=== PATIENT | male | born 1945 | race Caucasian/White ===

== ENCOUNTER → 2016-04-28 | Outpatient (CLI) | payer OTHER ==
[~2016-04-28] MED LIST: CLON0.1T PO; LISI-360 PO; LUMBAR BACK BRA1 MIS; TOPR200T PO; [UNRECOGNIZED DRUG - CODE] EX; [UNRECOGNIZED DRUG - CODE] PO
== END ==
LOC: HORT 10:12
PROVIDERS: ATTEND Physician Assistant Medical
DX: S32.000A Wedge compression fracture of unspecified lumbar vertebra, initial encounter for closed fracture (principal); X58.XXXA Exposure to other specified factors, initial encounter
CPT/HCPCS: L0627

== ENCOUNTER 2016-05-06 10:03 | Emergency (ER) | payer OTHER ==
[~2016-05-06] VITALS: Ht 170.2 cm; Wt 75.0 kg
[~2016-05-06 10:03] MED LIST changes: -CLON0.1T PO
[2016-05-06 10:10] VITALS: BP 161/90; PULSE 65; RESP 16; TEMP 97.9; O2SAT 98
--- NOTE | 2016-05-06 10:27 | PD ---
HPI Chief Complaint: confusion Time Seen by Provider: 10:11 Travel History International Travel<30 days: No Contact w/Intl Traveler<30days: No Traveled to known affect area: No History of Present Illness HPI This patient is brought in by his after he had a spell of confusion this morning. He was heading to the gym which she is going to many times and got confused and went in the wrong door. The patient realized that he was confused. Last night he reports that he had a blood pressure spike up to 200 systolic and had a headache. He had one other episode a week ago where he developed headache and blood pressure spike and confusion but it resolved spontaneously and he did not get it checked out. The patient did not have any muscle weakness or sensory loss or speech slurring. He takes no blood thinners. No history of CVA or TIA. He takes no sedating or mind altering medication. He had an L1 compression fracture diagnosed 3 weeks ago but he takes only Tylenol as needed for pain. Severity was moderate but has resolved and at this point he feels well. His agrees that his mental status is normal at this time. Duration was 30 minutes PFSH Past Medical History Arthritis: Yes Asthma: No Autoimmune Disease: No Heart Rhythm Problems: No Cancer: Yes (PROSTATE RADATION THERAPY AND CRYOSURGERY) Cardiovascular Problems: No High Cholesterol: Yes Chest Pain: No COPD: No Cerebrovascular Accident: No Diabetes: No Endocrine: No GERD: No Genitourinary: No Hepatitis: No Hiatal Hernia: No Hypertension: Yes Immune Disorder: No Kidney Stones: No Musculoskeletal: Yes (BACK AND NECKPAIN ARTHRITIS) Neurologic: Yes (NUMBNESS BOTH FEET, BACK, AND BUTTOCKS PAIN) Psychiatric: No Respiratory: No Migraines: No Radiation Therapy: Yes Seizures: No Sleep Apnea: No Thyroid Disease: No Ulcer: No Past Surgical History Abdominal Surgery: No AICD: No Cardiac Surgery: No Ear Surgery: No Endocrine Surgery: No Eye Surgery: Yes (CATARACT SX RIGHT EYE) Genitourinary Surgery: Yes (CRYOSURGERY, PROSTATE) Gynecologic Surgery: No Joint Replacement: No Neurologic Surgery: Yes (LUMBAR DECOMPRESSIVE LAMINOTOMY, 2-5) Oral Surgery: No Pacemaker: No Thoracic Surgery: No Other Surgery: Yes Social History Alcohol Use: No Tobacco Use: No Substance Use: No Allergies-Medications (Allergen,Severity, Reaction): Coded Allergies: Shellfish (Unverified Allergy, Mild, FLUSHED FACE, 1/14/17) Reported Meds & Prescriptions Reported Meds & Active Scripts Active Lumbar Back Brace/Support 1 Mis Mis 1 Ea .ROUTE DIRECTED Diflorasone Diacetate 0.05 % Cre 0.05 % EX BID Reported Casodex (Bicalutamide) 50 Mg Tab 50 Mg PO DAILY Lisinopril 10 mg (Lisinopril) 10 Mg Tab 10 Mg PO DAILY Toprol XL (Metoprolol Succinate) 200 Mg Tab 100 Mg PO DAILY Review of Systems General / Constitutional: No: Fever Eyes: No: Visual changes HENT: Positive: Headaches Cardiovascular: No: Chest Pain or Discomfort Respiratory: No: Shortness of Breath Gastrointestinal: No: Abdominal Pain Genitourinary: No: Dysuria Musculoskeletal: No: Pain Skin: No Rash Neurologic: Positive: Headache, Change in Mentation, No: Weakness Psychiatric: No: Depression Endocrine: No: Polydipsia Hematologic/Lymphatic: No: Easy Bruising Physical Exam Narrative GENERAL: Well-nourished, well-developed patient in no apparent distress. SKIN: Warm and dry. HEAD: Atraumatic. Normocephalic. EYES: Pupils equal and round. No scleral icterus. No injection or drainage. ENT: No nasal bleeding or discharge. Mucous membranes pink and moist. NECK: Trachea midline. No JVD. No meningeal signs CARDIOVASCULAR: Regular rate and rhythm. No murmur appreciated. RESPIRATORY: No accessory muscle use. Clear to auscultation. Breath sounds equal bilaterally. GASTROINTESTINAL: Abdomen soft, non-tender, nondistended. Hepatic and splenic margins not palpable. MUSCULOSKELETAL: No obvious deformities. No clubbing. No cyanosis. No edema. NEUROLOGICAL: Awake and alert. No obvious cranial nerve deficits. Motor grossly within normal limits. Normal speech. PSYCHIATRIC: Appropriate mood and affect; insight and judgment normal. Data Data Last Documented VS Vital Signs Date Time Temp Pulse Resp B/P Pulse Ox O2 Delivery O2 Flow Rate FiO2 05/06/16 11:03 60 16 163/82 98 05/06/16 10:10 97.9 Orders Basic Metabolic Panel (Bmp) (05/06/16 10:20) Complete Blood Count With Diff (05/06/16 10:20) Prothrombin Time / Inr (Pt) (05/06/16 10:20) Act Partial Throm Time (Ptt) (05/06/16 10:20) Thyroid Stimulating Hormone (05/06/16 10:20) Urinalysis - C+S If Indicated (05/06/16 10:20) Ct Brain W/O Iv Contrast(Rout) (05/06/16 10:20) Ecg Monitoring (05/06/16 10:20) Iv Access Insert/Monitor (05/06/16 10:20) Oximetry (05/06/16 10:20) Sodium Chloride 0.9% Flush (Ns Flush) (05/06/16 10:30) Labs Laboratory Tests Test 05/06/16 05/06/16 10:30 10:40 White Blood Count 7.9 TH/MM3 Red Blood Count 4.03 MIL/MM3 Hemoglobin 12.3 GM/DL Hematocrit 36.3 % Mean Corpuscular Volume 90.2 FL Mean Corpuscular Hemoglobin 30.4 PG Mean Corpuscular Hemoglobin 33.7 % Concent Red Cell Distribution Width 12.2 % Platelet Count 193 TH/MM3 Mean Platelet Volume 8.6 FL Neutrophils (%) (Auto) 75.6 % Lymphocytes (%) (Auto) 12.7 % Monocytes (%) (Auto) 9.3 % Eosinophils (%) (Auto) 2.2 % Basophils (%) (Auto) 0.2 % Neutrophils # (Auto) 6.0 TH/MM3 Lymphocytes # (Auto) 1.0 TH/MM3 Monocytes # (Auto) 0.7 TH/MM3 Eosinophils # (Auto) 0.2 TH/MM3 Basophils # (Auto) 0.0 TH/MM3 CBC Comment DIFF FINAL Differential Comment Prothrombin Time 10.4 SEC Prothromb Time International 0.9 RATIO Ratio Activated Partial 25.1 SEC Thromboplast Time Sodium Level 137 MEQ/L Potassium Level 4.1 MEQ/L Chloride Level 102 MEQ/L Carbon Dioxide Level 24.9 MEQ/L Anion Gap 10 MEQ/L Blood Urea Nitrogen 13 MG/DL Creatinine 0.92 MG/DL Estimat Glomerular Filtration 81 ML/MIN Rate Random Glucose 116 MG/DL Calcium Level 9.3 MG/DL Thyroid Stimulating Hormone 1.010 uIU/ML 3rd Gen Urine Collection Type CATH Urine Color YELLOW Urine Turbidity CLEAR Urine pH 6.5 Urine Specific [place] 1.020 Urine Protein NEG mg/dL Urine Glucose (UA) NEG mg/dL Urine Ketones NEG mg/dL Urine Occult Blood NEG Urine Nitrite NEG Urine Bilirubin NEG Urine Leukocyte Esterase NEG Urine RBC 0-3 /hpf Urine Squamous Epithelial 0-5 /hpf Cells Urine Amorphous Sediment FEW Microscopic Urinalysis Comment CATH-CULT NOT IND Urine Collection Time 1040 MDM Medical Decision Making Medical Screen Exam Complete: Yes Emergency Medical Condition: Yes Medical Record Reviewed: Yes Differential Diagnosis Hypertensive urgency, intracranial hemorrhage, TIA, migraine Narrative Course I have reviewed the patient's electronic medical record. Patient had L1 compression fracture 3 weeks ago. At this point the patient looks neurologically intact and his mental status is normal. All symptoms have resolved. It is his second spell however. Therefore I ordered a workup to include: IV placed CBC is normal Metabolic profile is normal Coagulation studies are normal TSH is normal Urinalysis is clean CT of brain shows punctate deep white matter ischemic disease type findings but no hemorrhage or edema or shift. 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 He tracks his blood pressure daily and normally it's okay but occasionally has spikes. It is during the spikes that he gets confusion and headache. I wrote him a prescription for as needed clonidine that he will take his blood pressure exceeds 160 systolic or 90 diastolic. He will discuss this primary physician and get follow-up. I don't see evidence of stroke He is completely asymptomatic now with normal exam Sounds more like he had 2 hypertensive urgencies. Diagnosis Primary Impression: Hypertensive urgency Additional Impression: Altered mental status Qualified Code: R40.4 - Transient alteration of awareness Additional Instructions: The patient was advised to follow up with their physician and return if they worsen. Check and record blood pressure daily Med/Other Pt SpecificInfo: Prescription(s) given Scripts Clonidine 0.1 Mg Tab0.1 Mg PO BID PRN (SBP>160, DBP>90) #20 TAB Ref 0 Prov:Ben Cochran MD 05/06/16 Disposition: 01 DISCHARGE HOME Condition: Stable Ben Cochran MD May 06, 2016 10:27
[2016-05-06] MEDS ORDERED: SODIUM CHLORIDE 0.9% FLUSH 5 ML FLUSH IVF PRN (10:30)
[2016-05-06 10:52] LABS: BLOOD, URINE NEG (NEG); GLUCOSE,URINE NEG (NEG); KETONE, URINE NEG (NEG); NITRITE,URINE NEG (NEG); PH, URINE 6.5 (5.0-8.5)
[2016-05-06 10:53] LABS: BASOPHIL % 0.2 % (0.0-2.0); EOSINOPHIL # 0.2 TH/MM3 (0-0.4); EOSINOPHIL % 2.2 % (0.0-4.0); HEMATOCRIT 36.3 % (39.0-51.0); HEMO FLAGS DIFF FINAL; LYMPH % 12.7 % (9.0-44.0); MEAN CELL VOLUME 90.2 FL (80.0-100.0); MEAN CORPUSCULAR HEMOGLOBIN 30.4 PG (27.0-34.0); MEAN CORPUSCULAR HGB CONC 33.7 % (32.0-36.0); MONO % 9.3 % (0.0-8.0); NEUT % 75.6 % (16.0-70.0); PLATELET COUNT 193 TH/MM3 (150-450); RED BLOOD COUNT 4.03 MIL/MM3 (4.50-5.90); RED CELL DISTRIBUTION WIDTH 12.2 % (11.6-17.2); WHITE BLOOD COUNT 7.9 TH/MM3 (4.0-11.0)
[2016-05-06 10:56] LABS: METHOD OF COLLECTION CATH; URINE COLOR YELLOW (YELLW/STRAW)
[2016-05-06 10:57] LABS: COMMENT (UR) CATH-CULT NOT IND; CULTURE IF INDICATED CATH CULTURE NOT IND; RBC, URINE 0-3 /hpf (0-3); SQUAMOUS EPITHELIAL CELL URINE 0-5 /hpf (0-5)
[2016-05-06 10:58] LABS: POTASSIUM 4.1 MEQ/L (3.5-5.1)
--- NOTE | 2016-05-06 10:59 | RADHPO ---
EXAM DATE/TIME: 05/06/2016 10:45 [facility] COMPARISON: No previous studies available for comparison. INDICATIONS : Episode of confusion this morning. RADIATION DOSE: 60.33 CTDIvol (mGy) MEDICAL HISTORY : Carcinoma, prostate. Hypertension. SURGICAL HISTORY : cataract surgery ENCOUNTER: Initial ACUITY: 1 day PAIN SCALE: 0/10 LOCATION: Bilateral head TECHNIQUE: Multiple contiguous axial images were obtained of the head. Using automated exposure control and adj ustment of the mA and/or kV according to patient size, radiation dose was kept as low as reasonably a chievable to obtain optimal diagnostic quality images. FINDINGS: CEREBRUM: The subtle hypodensities in the deep white matter tracks to the left probably region in the right hig h parietal regions likely related to either asymmetric ischemic demyelination or old strokes. Outpati ent MRI may be helpful. No evidence of hemorrhage, edema or mass effect is noted. No evidence of subd ural or subarachnoid hemorrhage POSTERIOR FOSSA: The cerebellum and brainstem are intact. The 4th ventricle is midline. The cerebellopontine angle i s unremarkable. EXTRACRANIAL: The visualized portion of the orbits is intact. SKULL: The calvaria is intact. No evidence of skull fracture. CONCLUSION: Hypodensities in the deep white matter tracks superiorly probably related to chronic ischemic demyeli nization changes. No definite acute hemorrhage, edema, mass, or mass effect. Outpatient brain MRI may be helpful. Valdez Norwood MD on May 06, 2016 at 10:56 Board Certified Radiologist. This report was verified electronically.
[2016-05-06 11:01] LABS: BICARBONATE 24.9 MEQ/L (21.0-32.0)
[2016-05-06 11:03] VITALS: BP 163/82; PULSE 60; RESP 16; O2SAT 98
[2016-05-06 11:03] LABS: APTT (PATIENT) 25.1 SEC (24.3-30.1); INTERNATIONAL NORMALIZED RATIO 0.9 RATIO; PROTHROMBIN TIME - PATIENT 10.4 SEC (9.8-11.6)
[2016-05-06] MEDS ORDERED: CLON0.1T PO (12:03)
== END 2016-05-06 12:15 | disposition home or self-care (01) ==
LOC: PHED 10:03
DX: I16.0 Hypertensive urgency (principal); R40.4 Transient alteration of awareness; M48.56XA Collapsed vertebra, not elsewhere classified, lumbar region, initial encounter for fracture; E78.00 Pure hypercholesterolemia, unspecified
CPT/HCPCS: 70450; 80048; 81001; 84443; 85025; 85610; 85730